=== PATIENT | female | born 1975 | race Caucasian/White ===

== ENCOUNTER 2020-01-13 01:19 | Emergency (ER) | payer SELFPAY ==
[2020-01-13 02:53] LABS: ABS Basophils 0.1 10^3/ul (0-0.2); ABS Eosinophils 0.1 10^3/ul (0-0.6); ABS Lymphocytes 1.9 10^3/ul (1.0-4.8); ABS Monocytes 0.3 10^3/ul (0-0.8); ABS Neutrophils 10.5 10^3/ul (1.5-7.7); Eosinophil % 0.6 %; Hematocrit 43 % (35-47); Hemoglobin 15.2 g/dL (12.0-16.0); Lymphocyte % 14.4 %; Mean Corpuscular HGB Conc 36 g/dL (31-36); Mean Corpuscular Hemoglobin 31 pg (27-31); Mean Corpuscular Volume 87 fL (80-97); Mean Platelet Volume 9.4 fL (7.4-10.4); Platelet Count 278 10^3/uL (150-450); Red Blood Count 4.94 10^6 /uL (3.70-4.87); Red Cell Distribution Width 13 % (10-15); White Blood Count 12.9 10^3/uL (3.5-10.8)
--- NOTE | 2020-01-13 02:57 | ED ---
Psychiatric Complaint - HPI Summary HPI Summary: This pt is a 44 Y/O F presenting to [facility] with a CC of a panic attack that started when she tried to sleep tonight. She states that she is currently very anxious and depressed. She has a PMHx of panic attacks associated with anxiety and depression. She states that she doesnt want to feel like this anymore. She states that she had one on Tuesday01/08/2020 but states that this is worse. She states that her anxiety and depression were gone for 2 years and is unsure why it returned. Her states that they have been having issues when they argue and thinks that may have brought on some of the symptoms. She denies any SI, HI, pain, fevers and SOB. She states that she has diaphoretic palms, headache, chest pressure, and states that she has episodic convulsions and shakes. Her LKMP was last week. She denies any alcohol, drugs, or tobacco. She states a FHx of anxiety and depression. - History Of Current Complaint Chief Complaint: EDGeneral Time Seen by Provider: 01/13/20 02:27 Accompanied By: Hx Obtained From: Patient, Family/Data Reduction Technician - Hx Last Menstrual Period: last week ?: No Onset/Duration: Sudden Onset, Lasting Hours, Still Present Timing: Constant Severity Initially: Severe Severity Currently: Severe Character: Depressed, Anxious Aggravating Factor(s): Other - believes that their fights have caused this Alleviating Factor(s): Nothing Associated Signs And Symptoms: Positive: Sleep Disturbance Related History: Positive For: Prior Psychiatric Issues - anxiety and depression Has Suicidal: Denies: Thoughts, With A Plan Has Homicidal: Denies: Thoughts, With A Plan - Allergies/Home Medications Allergies/Adverse Reactions: Allergies Allergy/AdvReac Type Severity Reaction Status Date / Time metoclopramide [From Reglan] Allergy See Comment Verified 01/13/20 12:22 Home Medications: Home Medications Metoprolol Tartrate 50 mg PO BID #30 tablet 01/13/20 [Rx] clonazePAM TAB(*) [KlonoPIN TAB(*)] 0.5 mg PO TID PRN #6 tab MDD 3MG 01/13/20 [ Rx] hydrOXYzine HCL [Hydroxyzine HCl] 50 mg PO Q6HR PRN #20 tablet 03/15/20 [Rx] PMH/Surg Hx/FS Hx/Imm Hx Previously Healthy: Yes Endocrine/Hematology History: Denies: Hx Diabetes Cardiovascular History: Denies: Hx Hypertension Psychiatric History: Reports: Hx Anxiety, Hx Depression - Cancer History Hx Chemotherapy: No Hx Radiation Therapy: No - Surgical History Surgical History: Yes Surgery Procedure, Year, and Place: Nasal polyp removal - Immunization History Date of Influenza Vaccine: Fall 2018 Immunizations Up to Date: Yes Infectious Disease History: No Infectious Disease History: Denies: Traveled Outside the [place] in Last 30 Days - Family History Known Family History: Positive: Other - psychiatric issues - Social History Occupation: Employed Full-time Lives: With Family Alcohol Use: Occasionally Hx Substance Use: No Substance Use Type: Reports: None Hx Tobacco Use: No Smoking Status (MU): Never Smoked Tobacco Review of Systems Positive: Skin Diaphoresis - hands. Negative: Fever Positive: Chest Pain - pressure Negative: Shortness Of Breath Musculoskeletal: Negative - pain Positive: Headache, Weakness All Other Systems Reviewed And Are Negative: Yes Physical Exam - Summary Physical Exam Summary: General: Well-developed, morbidly obese female. No acute distress. HEENT: Normocephalic, Atraumatic. Eyes: Conjuctiva normal, PERRL. Ears: TMs within normal limits. Nares: (-) discharge, (-) erythema. Oropharynx: Clear, mucous membranes moist, (-) exudates. Neck: Soft, FROM, (-) lymphadenopathy, (-) thyromegaly, (-) JVD. Cardiovascular: Normal sinus rhythm, (-) murmur. Lungs: Clear to auscultation bilaterally (-) wheezes, (-) rales, (-) rhonchi. Abdomen: Soft, non-tender, non-distended, (-) organomegaly, normal bowel sounds. Back: (-) CVA tenderness Extremities: No edema. Skin: Warm, dry, (-) rash. Neuro: Alert and oriented x3, no focal deficits. Psychiatric: tearful and anxious upon history. Moderately anxious appearing Triage Information Reviewed: Yes Vital Signs On Initial Exam: Initial Vitals Temp Pulse Resp BP Pulse Ox 97.7 F 111 18 171/116 97 01/13/20 01:20 01/13/20 01:20 01/13/20 01:20 01/13/20 01:20 01/13/20 01:20 Vital Signs Reviewed: Yes Procedures - Sedation Patient Received Moderate/Deep Sedation with Procedure: No Diagnostics - Vital Signs Vital Signs Temp Pulse Resp BP Pulse Ox 01/13/20 02:31 104 145/100 97 01/13/20 01:20 97.7 F 111 18 171/116 97 - Laboratory Result Diagrams: 01/13/20 02:37 01/13/20 02:37 Lab Statement: Any lab studies that have been ordered have been reviewed, and results considered in the medical decision making process. Re-Evaluation - Re-Evaluation First Eval Re-Evaluation Time: 05:32 Change: Improved Comment: Pt will be discharged home with one dose of klonopin for PRN use as well as HTN medication metoporol for her HTN. Course/Dx - Course Course Of Treatment: 44-year-old female presents with severe anxiety. She states she has a history of anxiety but hasn't had problems in the last 2 years. Was previously on medications. Currently not in counseling. She had a significant panic attack on Tuesday. States tonight she was not able to sleep. Feels like her heart is racing. This is much worse. Patient is very tearful and agitated upon arrival. She states she doesn't want to feel like this anymore. She denies suicidal ideation. Her notes that they have been having issues. He thinks that is making her symptoms worse. She states that she has diaphoretic palms, headache, chest pressure, and states that she has episodic convulsions and shakes. He shows no significant findings on physical exam. Workup was unremarkable. Patient given Klonopin with moderate improvement in her symptoms. Patient seen by mental health worker. Head evaluation. Psychiatrist recommends outpatient counseling. She will follow up with PCP for discussion of medication. In the meantime she is given 1 Klonopin to have at home for emergencies. Follow-up sooner for any worsening symptoms. - Differential Dx/Clinical Impression Provider Diagnosis: Anxiety disorder, unspecified - Physician Notifications Discussed Care Of Patient With: Bob Bradley Time Discussed With Above Provider: 04:21 Instructed by Provider To: Other - discharge Discharge ED - Sign-Out/Discharge Documenting (check all that apply): Patient Departure - discharge - Discharge Plan Condition: Stable Disposition: HOME Patient Education Materials: Anxiety (ED) Referrals: No Primary Care Phys,NOPCP [Primary Care Provider] - - Billing Disposition and Condition Condition: STABLE Disposition: Home - Attestation Statements Document Initiated by Scribe: Yes Documenting Scribe: Ramos Delcid Provider For Whom Scribe is Documenting (Include Credential): Caroline Duran MD Scribe Attestation: Ramos Granados, scribed for Caroline Duran MD on 01/14/20 at 0515. Scribe Documentation Reviewed: Yes Provider Attestation: The documentation as recorded by the Ramos guthrie accurately reflects the service I personally performed and the decisions made by me, Caroline Duran MD Status of Scribe Document: Viewed
[2020-01-13 03:00] LABS: INR 1.05 (0.82-1.09)
[2020-01-13 03:11] LABS: ALT 21 U/L (7-52); AST 17 U/L (13-39); Albumin 4.5 g/dL (3.2-5.2); Albumin/Globulin Ratio 1.6 (1-3); Alkaline Phosphatase 72 U/L (34-104); Anion Gap 11 mmol/L (2-11); BUN/Creatinine Ratio 19.7 (8-20); Blood Urea Nitrogen 12 mg/dL (6-24); CO2 Carbon Dioxide 20 mmol/L (22-32); Calcium 9.6 mg/dL (8.6-10.3); Chloride 105 mmol/L (101-111); EGFR African American 127.8 (>60); EGFR Non-African American 105.6 (>60); Globulin 2.8 g/dL (2-4); Glucose 144 mg/dL (70-100); Potassium 3.4 mmol/L (3.5-5.0); Sodium 136 mmol/L (135-145); Total Protein 7.3 g/dL (6.4-8.9)
[2020-01-13 03:52] LABS: Alcohol < 10 mg/dL (<10)
[2020-01-13 03:54] LABS: Urine Benzodiazepine Screen None Detected (None Detect); Urine Opiates Screen None Detected (None Detect)
[2020-01-13] MEDS ORDERED: clonazePAM TAB(*) 1 MG PO ONE ×2 (03:57→05:34)
[2020-01-13 04:08] LABS: TSH (Thyroid Stimulating Horm) 2.23 mcIU/mL (0.34-5.60)
[2020-01-13] MEDS ORDERED: Metoprolol Tartrate TAB* 50 mg PO ONE (05:34)
[2020-01-13 06:24] VITALS: BP 136/104
== END 2020-01-13 06:15 | disposition home or self-care (01) ==
LOC: ED 01:19
DX: F41.9 Anxiety disorder, unspecified (principal); I10 Essential (primary) hypertension; Z79.899 Other long term (current) drug therapy; Z88.8 Allergy status to other drugs, medicaments and biological substances
CPT/HCPCS: 36415; 80053; 80307; 80320; 83605; 84443; 84484; 85025; 85610; 99284; A9270-GY; G0480

== ENCOUNTER 2020-01-13 12:14 | Emergency (ER) | payer SELFPAY ==
[2020-01-13 12:36] VITALS: BP 156/106
--- NOTE | 2020-01-13 13:22 | UC ---
Psychiatric Complaint HPI - HPI Summary HPI Summary: For 4-year-old woman comes in with a chief complaint of anxiety and inability sleep. Started about 4-5 days ago. Went to the emergency room this past evening and was given a half milligram of Klonopin. She is planning on seeing [facility] tomorrow today being Tuesday they' re not open. Patient continues to feel anxious and having hard time sleeping. Denies any thoughts or plans to herself or others. Patient reports she's had anxiety and panic attacks 4-5 times in the past. In the past Klonopin has helped. When she was seen in emergency department she is also prescribed metoprolol for her hypertension. Patient reports she suffers from depression in a long-term but is not on any antidepressant medications. - History Of Current Complaint Chief Complaint: UCGeneralIllness Stated Complaint: ANXIETY Time Seen by Provider: 01/13/20 12:38 Hx Last Menstrual Period: last week - Allergies/Home Medications Allergies/Adverse Reactions: Allergies Allergy/AdvReac Type Severity Reaction Status Date / Time metoclopramide [From Reglan] Allergy See Comment Verified 01/13/20 12:22 Home Medications: Home Medications Metoprolol Tartrate 50 mg PO BID #30 tablet 01/13/20 [Rx] clonazePAM TAB(*) [KlonoPIN TAB(*)] 0.5 mg PO TID PRN #6 tab MDD 3MG 01/13/20 [ Rx] hydrOXYzine HCL [Hydroxyzine HCl] 50 mg PO Q6HR PRN #20 tablet 01/13/20 [Rx] PMH/Surg Hx/FS Hx/Imm Hx Previously Healthy: Yes Psychological History: Anxiety, Depression - Surgical History Surgical History: Yes Surgery Procedure, Year, and Place: Nasal polyp removal - Family History Known Family History: Positive: Other - psychiatric issues - Social History Alcohol Use: Occasionally Alcohol Amount: Only on occasions Substance Use Type: None Smoking Status (MU): Never Smoked Tobacco Review of Systems All Other Systems Reviewed And Are Negative: Yes Constitutional: Positive: Other - SEE HPI Skin: Positive: Negative Eyes: Positive: Negative ENT: Positive: Negative Respiratory: Positive: Negative Cardiovascular: Positive: Negative Gastrointestinal: Positive: Negative Motor: Positive: Negative Neurovascular: Positive: Negative Musculoskeletal: Positive: Negative Neurological/Mental Status: Positive: Negative Psychological: Positive: Anxious, Other - SEE HPI Is Patient Immunocompromised?: No Physical Exam Triage Information Reviewed: Yes Appearance: Well-Appearing, No Pain Distress, Well-Nourished, Other: Vital Signs: Initial Vital Signs Temp 99.3 F 01/13/20 12:23 Pulse 95 01/13/20 12:23 Resp 16 01/13/20 12:23 BP 156/106 01/13/20 12:23 Pulse Ox 98 01/13/20 12:23 Vital Signs Reviewed: Yes Eye Exam: Normal Eyes: Positive: Conjunctiva Clear Neck: Positive: Supple Respiratory: Positive: Lungs clear, Normal breath sounds, No respiratory distress Cardiovascular: Positive: RRR Musculoskeletal: Positive: Strength Intact, ROM Intact Neurological: Positive: Alert, Muscle Tone Normal Psychological: Positive: Age Appropriate Behavior, Other: - The patient appears slightly anxious. Skin Exam: Normal Psych Complaint Course/Dx - Course Course Of Treatment: Patient reports she is going to be seeing [facility] tomorrow for her anxiety. Denies any thoughts of hurting her self or others. She reports knee in the past she's had different benzodiazepines and Klonopin was the only one that did work. I prescribed Klonopin 0.5 mg total #6 tablets. There to be taken 0.5 or 1 mg every 8 hours as needed. Also wrote for hydroxyzine 50 mg every 6 hours as needed. Patient reports she was given a prescription for metoprolol for hypertension from the [facility] emergency department however that prescription was sent to the pharmacy in [place] and she requested can he metoprolol prescription be resent to her pharmacy her [facility]. I wrote for metoprolol 50 mg twice a day total #30. For her hypertension is to follow-up with primary care doctor within a week. Her know that if her symptoms got worse with the anxiety or depression she should go to the emergency department. - Differential Dx/Diagnosis Provider Diagnosis: Anxiety, Hypertension Discharge ED - Sign-Out/Discharge Documenting (check all that apply): Patient Departure All imaging exams completed and their final reports reviewed: No Studies - Discharge Plan Condition: Stable Disposition: HOME Prescriptions: clonazePAM TAB(*) [KlonoPIN TAB(*)] 0.5 mg PO TID PRN #6 tab MDD 3MG PRN Reason: Anxiety hydrOXYzine HCL [Hydroxyzine HCl] 50 mg PO Q6HR PRN #20 tablet PRN Reason: Anxiety Metoprolol Tartrate 50 mg PO BID #30 tablet Patient Education Materials: Hypertension (ED), Anxiety (ED) Referrals: [facility] [place] [facility] [Outside] [facility] [Outside] [facility] [Outside] [facility] [Outside] [facility] [Outside] [facility] [Outside] Additional Instructions: FOLLOW UP WITH MENTAL HEALTH TOMORROW PLANNED. FOLLOW UP WITH YOUR DOCTOR WITHIN 1 WEEK FOR YOUR HYPERTENSION. GO TO THE EMERGENCY DEPARTMENT IF NOT IMPROVED OR WORSE; ANXIETY, DEPRESSION, THOUGHTS OF HURTING YOURSELF OR OTHERS, YOU ARE UNABLE TO CARE FOR YOURSELF OR ANY QUESTIONS OR CONCERNS. - Billing Disposition and Condition Condition: STABLE Disposition: Home
== END 2020-01-13 13:35 | disposition home or self-care (01) ==
LOC: UCCORT 12:14
DX: F41.9 Anxiety disorder, unspecified (principal); I10 Essential (primary) hypertension; F32.9 Major depressive disorder, single episode, unspecified; Z88.8 Allergy status to other drugs, medicaments and biological substances; Z79.899 Other long term (current) drug therapy
CPT/HCPCS: 99212; G0463